=== PATIENT | female | born 1990 | race Caucasian/White ===

== ENCOUNTER 2024-09-28 17:47 | Emergency (ER) | payer OTHER, SELFPAY ==
[2024-09-28 18:03] VITALS: BP 127/73
--- NOTE | 2024-09-28 18:14 | ED.GENMED ---
History of Present Illness
General
Chief Complaint: Rabies
Source: patient
Exam Limitations: none
Time Seen by Provider: 09/28/24 18:18
History of Present Illness
History of Present Illness:
34yoF presenting for rabies vaccination. Patient woke up in the middle of the night with a bat in her hallway. She does keep her bedroom door open. Her threw the bat outside. She does not believe she was bitten by a bat but came to the
ED for rabies vaccine after researching on [employer]
Phy Exam
General Physical Exam
General Presentation: well appearing and no apparent distress
General age: appears stated age
General Skin: warm and dry
General Habitus: normal
General Mental: alert
ENT Exam
ENT Exam: normocephalic
Pulmonary Exam
Pulmonary Exam: no respiratory distress
Neurological Exam
Neurological Exam: alert
Marly Coma Scale
Eye Opening: Spontaneous
Verbal Response: Oriented
Motor Response: Obeys Commands
GCS Total Score: 15
Skin Exam
Skin Exam: normal color and warm/dry
Psychiatric Exam
Psychiatric Exam: normal mood/affect
Course
Orders/Labs/Results
Orders:
Orders
09/28/24 18:11
Test Result ONCE
09/28/24 18:17
, Urine Qualitative Screen [HCG, Urine Qualitative Screen] Urgent
Date Specimen was Collected: 09/28/24
Time Specimen was Collected: 18:16
09/28/24 18:23
Rabies Immune Globulin/Pf [HyperRAB] 1,500 unit IM NOW STA
09/28/24 18:30
Rabies Vaccine (Pcec)/Pf [Rabavert Rabies Vacc W-Diluent] 2.5 unit IM .ONCE ONE
Vital Signs
Initial and Last Documented VS:
Initial Vital Signs
Temp Pulse Resp BP Pulse Ox
98.3 F 76 16 127/73 99
09/28/24 18:03 09/28/24 18:03 09/28/24 18:03 09/28/24 18:03 09/28/24 18:03
Last Documented Vital Signs
Temp Pulse Resp BP Pulse Ox
98.3 F 76 16 127/73 99
09/28/24 18:03 09/28/24 18:03 09/28/24 18:55 09/28/24 18:03 09/28/24 18:15
MDM/Problems Addressed
Differential Diagnosis Includes:
34yoF here for rabies vaccine after a bat was found in her house while sleeping. Does not believe she was bitten. VSS. Rabies immunoglobulin and vaccine administered. Prescription provided for remaining 3 vaccines and she was advised to call the
infusion center tomorrow to schedule these appointments.
*Pulse Oximetry
SaO2: 99
Oxygen Mode of Delivery: Room air
Patient hypoxic: no (99%)
*Critical Care Note
Total Time (30-74mins, 75-104mins- exclusive of procedures): Not Applicable
ED Attending Note
-
Portions of this chart may have been created with voice recognition software.� Occasional wrong word or��sound alike� substitutions may have occurred due to the inherent limitations of voice recognition software.
Discharge Plan
Departure
Patient Disposition: Home (Routine Discharge)
Date of Disposition: 09/28/24
Time of Disposition: 18:15
Patient with high blood pressure during this ER visit?: No
Discharge Problem:
Need for post exposure prophylaxis for rabies
Instructions: Rabies Vaccine CDC Vaccine Information Statement (VIS)
Prescriptions:
New
rabies vacc,human diploid (PF) 2.5 unit recon soln
2.5 unit IM ONCE Qty: 3 0RF
Rx Instructions:
Administer vaccine IM on 10/01/24, 10/05/24, and 10/12/24.
Stand Alone Forms: Rabies Vaccine Post Exp Dosing
Activity Restrictions/Additional Instructions:
Please call the infusion center tomorrow to schedule the remainder of your rabies vaccines.
Interventions
Interventions:
*Risk Screen - Suicide Last Done: 09/28/24 18:03
*General Assessment Last Done: 09/28/24 18:03
*Neglect/Abuse Screening Last Done: 09/28/24 18:19
*Nursing Disposition Last Done: 09/28/24 18:55
Discharge Date and Time
Discharge Date/Time: 09/28/24 18:55
Print Language: PASHTO
[2024-09-28 18:16] VITALS: BMI 28.8
[2024-09-28 18:38] LABS: HCG, Urine Qualitative Screen Negative
[2024-09-28] MEDS: RABAVERT RABIES VACC W-DILUENT 2.5 UNIT IM (18:46)
== END 2024-09-28 18:55 | disposition home or self-care (01) ==
LOC: EMR 17:47
PROVIDERS: Physician Assistant; EMERGENCY PHYSICIAN Emergency Medicine
DX: Z20.3 Contact with and (suspected) exposure to rabies (principal); Z23 Encounter for immunization
CPT/HCPCS: 99282; 90471; 96372; 81025; 90375; 90675

== ENCOUNTER 2024-10-12 15:07 | Outpatient (RCR) | payer OTHER, SELFPAY ==
[2024-10-01] MEDS: RABAVERT RABIES VACC W-DILUENT 2.5 UNIT IM (15:26)
[2024-10-01 15:30] VITALS: BP 111/81
[2024-10-05] MEDS: RABAVERT RABIES VACC W-DILUENT 2.5 UNIT IM (15:29)
[2024-10-05 15:39] VITALS: BP 111/76
[2024-10-12 15:43] VITALS: BP 116/68
[2024-10-12] MEDS: RABAVERT RABIES VACC W-DILUENT 2.5 UNIT IM (15:46)
== END 2024-10-18 23:59 | disposition home or self-care (01) ==
LOC: OID 15:07
PROVIDERS: ATTENDING PHYSICIAN Emergency Medicine
DX: Z29.3 Encounter for prophylactic fluoride administration (principal); Z20.3 Contact with and (suspected) exposure to rabies (principal); Z23 Encounter for immunization
CPT/HCPCS: 90471; 90675

== ENCOUNTER 2024-12-09 09:59 | Emergency (ER) | payer OTHER, SELFPAY ==
[2024-12-09 10:07] VITALS: BP 111/78
--- NOTE | 2024-12-09 11:27 | ED.GENMED ---
History of Present Illness
General
Chief Complaint: Back Pain
Time Seen by Provider: 12/09/24 11:17
History of Present Illness
History of Present Illness:
34-year-old female with no significant past medical history presents to the emergency department for evaluation of right-sided low back pain with frequent muscle spasms over the past 24 hours. She denies any known injury. She works from home
predominantly but admits that she sits all day and is not very active. Denies any loss of bladder or bowel function. Does have paresthesias to the lower extremities bilaterally right greater than left. No fevers or chills. No meds taken for
symptoms today
Review of Systems
Review of Systems
Allergies reviewed?: Yes
All Other Systems: ROS reviewed and negative except as documented in HPI and ROS
Phy Exam
Physical Exam
Physical Exam:
GEN: Well appearing, NAD, WDWN
HEENT: Oral mucosa moist, no scleral icterus
Cardiac: Regular rate
Lung: No respiratory distress, no tachypnea
MSK: No gross deformity or injuries, no reproducible tenderness to the lumbar paraspinous musculature or spinous processes. Bilateral lower extremity range of motion is normal with intact strength in all rodriguez, no sensory deficits
Skin: Good color, no pallor or jaundice, no rashes
Neuro: AO x3, moves all extremities freely
Psych: Calm, cooperative
Course
Orders/Labs/Results
Orders:
Orders
12/09/24 11:27
Test Result ONCE
12/09/24 11:49
HCG, Urine Qualitative Screen Urgent
Date Specimen was Collected: 12/09/24
Time Specimen was Collected: 11:45
Vital Signs
Initial and Last Documented VS:
Initial Vital Signs
Temp Pulse Resp BP Pulse Ox
98.2 F 83 16 111/78 97
12/09/24 10:07 12/09/24 10:07 12/09/24 10:07 12/09/24 10:07 12/09/24 10:07
Last Documented Vital Signs
Temp Pulse Resp BP Pulse Ox
98.2 F 68 16 114/79 99
12/09/24 10:07 12/09/24 12:10 12/09/24 12:10 12/09/24 12:10 12/09/24 12:10
MDM/Problems Addressed
MDM/Problems Addressed:
34-year-old female presenting with radicular low back pain without trauma. No indication for imaging, she has intact bilateral lower extremity strength and no urinary incontinence worrisome for cauda equina. Will treat supportively with NSAIDs and
muscle relaxants, discussed benefit from outpatient PT
*Pulse Oximetry
SaO2: 97
Oxygen Mode of Delivery: Room air
Patient hypoxic: no
*Critical Care Note
Total Time (30-74mins, 75-104mins- exclusive of procedures): Not Applicable
ED Attending Note
-
Portions of this chart may have been created with voice recognition software.� Occasional wrong word or��sound alike� substitutions may have occurred due to the inherent limitations of voice recognition software.
Discharge Plan
Departure
Patient Disposition: Home (Routine Discharge)
Date of Disposition: 12/09/24
Time of Disposition: 12:06
Patient with high blood pressure during this ER visit?: No
Discharge Problem:
Acute lumbar radiculopathy
Instructions: Radiculopathy (DC)
Prescriptions:
New
methocarbamol 750 mg tablet
750 - 1,500 mg PO TID PRN (Reason: pain) Qty: 20 0RF
celecoxib 200 mg capsule
200 mg PO BID PRN (Reason: Pain) Qty: 20 0RF
No Action
rabies vacc,human diploid (PF) 2.5 unit recon soln
2.5 unit IM ONCE Qty: 3 0RF
Rx Instructions:
Administer vaccine IM on 10/01/24, 10/05/24, and 10/12/24.
Referrals:
NONE,* [Family Provider, Internal Medicine]
Activity Restrictions/Additional Instructions:
As we discussed, NSAIDs (such as celecoxib I prescribed you, or over the counter ibuprofen) can impair implantation of a . Please use this medication judiciously while you are trying to get
Interventions
Interventions:
*Risk Screen - Suicide Last Done: 12/09/24 10:07
*General Assessment Last Done: 12/09/24 10:07
*Neglect/Abuse Screening Last Done: 12/09/24 11:30
*ED- Fall Risk Assessment Last Done: 12/09/24 11:30
*Nursing Disposition Last Done: 12/09/24 12:10
ED-Musculoskeletal Assessment Last Done: 12/09/24 11:30
Discharge Date and Time
Discharge Date/Time: 12/09/24 12:11
Print Language: DANISH
[2024-12-09 12:02] LABS: HCG, Urine Qualitative Screen Negative
[2024-12-09 12:10] VITALS: BP 114/79
== END 2024-12-09 12:11 | disposition home or self-care (01) ==
LOC: EMR 09:59
PROVIDERS: Physician Assistant; EMERGENCY PHYSICIAN Emergency Medicine
DX: M54.16 Radiculopathy, lumbar region (principal)
CPT/HCPCS: 99283; 81025